=== PATIENT | female | born 1985 | race Caucasian/White ===

== ENCOUNTER 2017-12-29 00:31 | Outpatient (CLI) | payer OTHER, SELFPAY ==
--- NOTE | 2017-12-29 09:54 | DI.RAD_ITS ---
SYMPTOMS/DIAGNOSIS: DIFFICULTY SWALLOWING, R13.10 BARIUM SWALLOW: Fluoroscopy Time: 21 sec Preliminary films of the chest and neck are unremarkable. Barium was ingested and showed normal hypopharyngeal motility. Esophageal motility and mucosal appearance appear intact throughout. The 12 mm barium tablet passed easily through the esophagus into the stomach. CONCLUSION: Normal barium swallow.
[2017-12-29] MEDS: Barium Sulfate 60% W/V 355 ML BTL PO (09:55)
[2017-12-29] MEDS: Barium Sulfate 700 MG TAB PO (09:56)
== END 2017-12-29 00:51 ==
PROVIDERS: PCP Specialist/Technologist Athletic Trainer; Visit Provider Specialist/Technologist Athletic Trainer
DX: R13.10 Dysphagia, unspecified (principal)
CPT/HCPCS: 74220; J3490

== ENCOUNTER 2018-01-05 00:54 | Outpatient (CLI) | payer OTHER, SELFPAY ==
--- NOTE | 2018-01-05 15:00 | DI.US_ITS ---
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 Right lobe measures 42 x 16 x 11 mm and left lobe measures 25 x 11 x 6 mm. Thyroid parenchyma appears homogenous bilaterally. No mass identified. The isthmus measures about 3 mm in thickness. CONCLUSION: Negative thyroid ultrasound.
== END 2018-01-05 01:14 ==
PROVIDERS: PCP Specialist/Technologist Athletic Trainer; Visit Provider Specialist/Technologist Athletic Trainer
DX: E01.0 Iodine-deficiency related diffuse (endemic) goiter (principal); E07.89 Other specified disorders of thyroid
CPT/HCPCS: 76536